=== PATIENT | female | born 1980 | race Caucasian/White ===

== ENCOUNTER 2017-05-17 03:51 | Inpatient (IN) | payer OTHER ==
[~2017-05-17] VITALS: Ht 160 cm; Wt 49.0 kg
[~2017-05-17 03:51] MED LIST: AUGMENTIN 875-1 EACH PO; FOLIC ACID 1 MG PO; FOLIC ACID1 M1 PO; MAGNESIUM400 M1 PO; NICODERM C21 MG/24 H TOP; ONE DAILY MULT1 EAC2 PO; PANTOPRAZOLE SO40 M1 PO; PERCOCET 5-3251 EACH PO; QUETIAPINE FUMA50 M1 PO; ROPINIROLE HCL0.5 MG PO; SEROQUEL XR150 M1 PO; SEROQUEL50 M1 PO; VITAMIN B-1100 MG PO; VITAMIN B1100 MG PO
--- NOTE | 2017-05-17 12:27 | Operative Report ---
Operative/Inv Procedure Report Surgery Date: 05/17/17 Name of Procedure: Laparoscopic colostomy reversal Take down of splenic flexure Pre-Operative Diagnosis: Diverticulitis status post colostomy Post-Operative Diagnosis: Same Estimated Blood Loss: less than 50ml Surgeon/External Auditor: Marlon VELASCO,Augustin Singer/Stacy SHARIF Anesthesia: general endotracheal tube Drains: None Specimens: Stoma and rectosigmoid Operative Indication: 36-year-old woman status post Gray's procedure for diverticulitis presents for colostomy reversal Operative/Procedure Note Note: After consent is brought to the operative laid supine. Gen. anesthesia was obtained and her abdomen was prepped in lithotomy position. The stoma was closed preoperatively and a sterile dressing placed over it. We gained access to the peritoneum through an epigastric port site through her midline scar. Skin was incised sharply subcutaneous tissues tissues dissected bluntly. Fascia was incised sharply and stay sutures placed. A blunt Severino port was placed. Pneumoperitoneum was achieved. A 5 mm ports placed in the right mid abdomen, a 12 mm ports placed in the right lower quadrant and a 5 mm ports placed in the suprapubic region. All were placed under direct vision the camera. Began by taking down the adhesions to the anterior abdominal wall sharply. There were minimal adhesions to the stoma site. There were numerous bowel loops that were adherent to the colon which were taken down sharply. This was the lengthiest part of the dissection. We then dissected small bowel loops up out of the pelvis. One loop was intimately adhered to the staple line of the rectal stump. Eventually were able to dissect it free circumferentially and evacuated the intestinal contents out of the pelvis. Abdominal cavity was and suction irrigated normal saline. We then converted to an open operation by taking down the stoma with an ellipse of skin around it. We dissected down to the peritoneum and mobilized the colon up into the wound. The stoma was transected with an automatic purse dai and then the portion of colon traveling through the abdominal wall was transected and passed off the field. We sized the colon to a 31 EEA anvil. The intervals placed in and cinched down. Fatty tissue overlying the staple line was taken down with cautery. And will then placed back in the peritoneal cavity in the fascia at the stoma site closed in 2 layers of 0 Maxon suture. We then proceeded back laparoscopically. It appeared that the left colon needed more mobilization. Took down the splenic flexure with blunt and cautery and LigaSure dissection. Once we had adequate mobilization I then broke scrub and went down below. Rectal stump was quite long but we're able to navigate it with proctoscopy as well as the sizers. Then placed the EEA stapler up through the anus up to the rectal stump. In doing so we saw what appeared to be a tear nearly through and through near the rectal stump. I then removed it and placed a proctoscope. Indeed there was a tear so I then scrubbed back in and went back laparoscopically. We mobilized the proximal rectum and using EEA stapler to transect the rectosigmoid junction just beyond the area of perforation. Vessels were taken with LigaSure. I then went back down below and performed end-to-end anastomosis without complication. Final anastomotic leak check was performed and no bubbles were seen. And scrubbed back in. The rectal specimen was extracted through the epigastric port site in a specimen bag. Within remove the ports. The fascia was closed 0 Vicryl suture. Skin incisions closed with leanna in the stoma site left open for packing. Patient tolerated procedure well. CC: Loyda VELASCO,Tequila Hernández
--- NOTE | 2017-05-17 15:09 | Admission Core Measures ---
Acute Coronary Syndrome (CM) ACS Core Measures Acute Coronary Syndrome Diagnosis No Congestive Heart Failure (NEW) CHF Core Measures Congestive Heart Failure Diagnosis No Cerebrovascular Accident (NEW) CVA Core Measures CVA/TIA Diagnosis No Venous Thromboembolism VTE Core Luca (View Protocol) VTE Risk Factors Surgery No Mechanical VTE Prophylaxis d/t N/A MechProphylax Ordered No VTE Pharm Prophylaxis d/t NA PharmProphylax ordered Problem List As ranked by this Provider includes Assessment & Plan 1. Status post colostomy HOME MEDS Home Med List Magnesium Oxide (Magnesium) 400 MG CAPSULE 1 CAP PO DAILY SUPP (Reported) Pantoprazole Sodium 40 MG TABLET.DR 1 TAB PO DAILY REFLUX (Reported) Quetiapine Fumarate 50 MG TABLET 1 TAB PO BID BIPOLAR (Reported) Quetiapine Fumarate (Seroquel XR) 150 MG TAB.ER.24H 1 TAB PO AT BEDTIME MOOD AND ANXIETY Ropinirole HCl 0.5 MG TABLET 1 TAB PO BID RESTLESS LEG (Reported)
--- NOTE | 2017-05-17 15:19 | PN- General Surgery ---
Subjective Subjective: Post op check: Patient reporting generalized abdominal pain. Denies nausea, denies vomitting. Is npo. Has ibarra catheter in place. No flatus. No belching or hiccuping. Has yet to ambulate. Objective Vital Signs and I&Os T: 98.4, HR 82, RR 15, BP: 104/64, O2 95 Room Air Physical Exam: General: Alert and oriented x3, no acute distress Cardiac: RRR, s1s2 Pulm: CTA bilaterally ABD: Non-distended, florencio-incisional tenderness, no peritonitic signs on exam. No bowel sounds ausculated. Dressing to stoma site blood tinged, other dressings dry and intact. Extremities: Moves all extremities, distal sensations intact. Skin warm and well perfused. DP pulses palpable. ALPS in place. Bilateral calves soft and non-tender. Assessment/Plan Assessment/Plan This is a 36 year old female with a PMH signficant for copd, depression, anxiety. She had colostomy for perforated diverticulitis. She is POD 0 for colostomy reversal -npo, iv fluid hydration -oob as tolerated -hep sub q for dvt ppx, alps -atc offirmev, with iv morphine for breakthrough pain, will transition to po as bowel function improves -Follow up labs in am, especially magnesium as she is on a home supplement Will d/w Dr. Mason Core Measures Venous Thromboembolism VTE Risk Factors Surgery No Mechanical VTE Prophylaxis d/t N/A MechProphylax Ordered No VTE Pharm Prophylaxis d/t NA PharmProphylax ordered
[2017-05-17 16:00] VITALS: BP 108/72
[2017-05-17 22:33] VITALS: BP 116/80
[2017-05-18 02:10] VITALS: BP 111/94
[2017-05-18 06:59] VITALS: BP 134/76
--- NOTE | 2017-05-18 07:43 | PN- General Surgery ---
See Addendum Subjective Subjective: Pt re[ports passing small amounts of flatus. She has not been OOB yet since surgery. On IV Ofirmev fpr pain, took Morphine IV for pain. Denies nausea. Objective Vital Signs and I&Os Vital Signs Date Time Temp Pulse Resp B/P B/P Pulse O2 O2 Flow FiO2 Mean Ox Delivery Rate 05/18 0659 98.2 73 16 134/76 100 Nasal 1.0L Cannula 05/18 0210 98.3 82 18 111/94 98 Nasal 2.0L Cannula 05/18 0000 Nasal 2.0L Cannula 05/17 2233 98.2 96 16 116/80 94 Nasal 3.0L Cannula 05/17 1618 95 Nasal 3.0L Cannula 05/17 1600 97.7 110 16 108/72 95 Nasal 3.0L Cannula Intake & Output 05/18 0800 02/ 0000 05/17 1600 05/17 0800 05/17 0000 05/16 1600 Intake Total 840 705 Output Total 1000 Balance 840 -295 Intake, IV 600 225 Intake, Oral 240 480 Output, Urine 1000 Patient 108 lb Weight Alert, oriented, looks comfortable.No distress. Lungs clear bilat. Herat with normal rate. Abdomen is soft, mildly ditended. Incisional sites are clean with dressings on, no active bleeding. Appropriately tender. Extr. without edema. Assessment/Plan Assessment/Plan s/p colostomy reversal for diverticulitis POD#1 Abdominal exam as expected, mildly distended and appropriately tender. She has evidence of some bowel fxn / passing small flatus. I instructed her that she needs to be ambulating multiple times to promote bowel fxn. Would continue clear liquids for now tilll passing more flatus. On IV Tylenol for pain. Will add oral Percocet. Instructed to take IV morphine as second choice if no relief with oral narcotic. Making adequate urine.Taking PO liquids well. Will d/c [place] and hep lock IVF. On heparin sc for chemical DVT prophylaxis. Labs pending for this morning, will follow results. Core Measures Venous Thromboembolism VTE Risk Factors Surgery No Mechanical VTE Prophylaxis d/t N/A MechProphylax Ordered No VTE Pharm Prophylaxis d/t NA PharmProphylax ordered
[2017-05-18 08:22] LABS: ABSOLUTE BASOPHIL COUNT 0.1 /CUMM (0.0-0.2); ABSOLUTE EOSINOPHIL COUNT 0 /CUMM (0.0-0.7); ABSOLUTE GRANULOCYTE CT 11.1 /CUMM (1.4-6.5); ABSOLUTE LYMPH COUNT 3.2 /CUMM (1.2-3.4); ABSOLUTE MONOCYTE COUNT 0.9 /CUMM (0.10-0.60); BASOPHIL % 0.3 % (0.0-2.0); EOSINOPHIL % 0 % (0-5); MEAN CORPUSCULAR HGB 30.1 PG (27.0-31.0); MEAN CORPUSCULAR HGB CONC 33.8 G/DL (33.0-37.0); MEAN CORPUSCULAR VOLUME 89.1 FL (81.0-99.0); MEAN PLATELET VOLUME 7.9 FL (7.4-10.4); PLATELET COUNT 312 /CUMM (130-400); RBC DISTRIBUTION WIDTH 14.1 % (11.5-14.5); RED BLOOD CELL CT 4.06 /CUMM (4.20-5.40)
[2017-05-18 10:04] LABS: HEMATOCRIT 36.2 % (37-47); WHITE BLOOD CELL COUNT 15.1 /CUMM (4.8-10.8)
[2017-05-18 14:35] VITALS: BP 100/68
[2017-05-18 22:05] VITALS: BP 130/88
[2017-05-19 06:30] VITALS: BP 120/94
--- NOTE | 2017-05-19 09:29 | PN- General Surgery ---
See Addendum Surgical Brief Attending Note Brief Attending Note: patient doing well. tolerating clears. flatus. no bm. ambulatory. advance diet. anticipate d/c tomorrow. Needs packing change stoma site daily.
[2017-05-19 14:29] VITALS: BP 104/64
[2017-05-19 21:44] VITALS: BP 114/80
[2017-05-20 06:13] VITALS: BP 100/76
--- NOTE | 2017-05-20 09:06 | Patient Discharge Instructions ---
Discharge Instructions General Discharge Information You were seen/treated for: LEFT COLON COLOSTOMY You had these procedures: COLOSTOMY REVERSAL Watch for these problems: INCREASED WOUND DRAIANGE/REDNESS, TEMP>101.5, INCREASED PAIN Call Surgeon to remove: [place] No bath, but you may shower: Yes Other wound care: DAILY PACKING TO OLD STOMA SITE BY [facility] Diet Continue normal diet: Yes Recommended Diet: Regular Activity Activity Limited to: Weight bear as tolerated Other activity limits: NO STRENUOUS ACTIVITY Acute Coronary Syndrome Inclusion Criteria At DC or during hospital stay patient has or had the following: ACS DIAGNOSIS No Discharge Core Measures Meds if any: Prescribed or Continued at Discharge Meds if any: NOT Prescribed or Continued at Discharge Congestive Heart Failure Inclusion Criteria At DC or during hospital stay patient has or had the following: CHF DIAGNOSIS No Discharge Core Measures Meds if any: Prescribed or Continued at Discharge Meds if any: NOT Prescribed or Continued at Discharge Cerebrovascular accident Inclusion Criteria At DC or during hospital stay patient has or had the following: CVA/TIA Diagnosis No Discharge Core Measures Meds if any: Prescribed or Continued at Discharge Meds if any: NOT Prescribed or Continued at Discharge Venous thromboembolism Inclusion Criteria VTE Diagnosis No VTE Type NONE VTE Confirmed by (Test) NONE Discharge Core Measures - Per Current guidelines, there needs to be overlap - treatment for the first 5 days of Warfarin therapy. - If discharged on Warfarin prior to 5 days of - overlap therapy, the patient will need to be - assessed for post discharge needs including - *Post discharge parental anticoagulation - *Warfarin and/or parental anticoagulation education - *Follow up date to check INR post discharge At least 5 days overlap therapy as Inpatient No Meds if any: Prescribed or Continued at Discharge Note: Overlap Therapy is Warfarin and Anticoagulant Meds if any: NOT Prescribed or Continued at Discharge
--- NOTE | 2017-05-20 09:13 | PN- General Surgery ---
Subjective Subjective: POD#3 S/P COLOSTOMY REVERSAL NO MAJOR ISSUES OVERNIGHT TOLERATING REG DIET DENIES, CP, SOB, NO N/V, NO BLOATING/BELCHING NO BM VOIDING AND AMBULATING INDEPENDENTLY Objective Vital Signs and I&Os Vital Signs Date Time Temp Pulse Resp B/P B/P Pulse O2 O2 Flow FiO2 Mean Ox Delivery Rate 05/20 612 98.2 78 20 100/76 92 05/19 214 98.1 78 18 114/80 96 05/19 1429 98.4 82 15 104/64 95 Room Air Intake & Output 05/20 1600 05/20 0800 05/20 0000 05/19 1600 05/19 0000 Intake Total 120 450 500 240 480 Output Total 400 300 250 Balance -280 150 500 240 230 Intake, Oral 120 450 500 240 480 Output, Urine 400 300 250 Physical Exam: CV: RRR LUNGS: CLEAR ABD: SOFT, FLAT, +BS WOUND C/D/I STOMA SITE CLEAN WITHOUT DRAIANGE NO CELLULITIS PRESENT EXT: NO CALF TENDERNESS BIALT DISTAL CMS INTACT Assessment/Plan Assessment/Plan SURGICAL STABLE PLAN CONT OOB/AMBULATE AWAIT IMPROVED BOWEL FXN POSSIBLE D/C LATER TODAY Core Measures Venous Thromboembolism VTE Risk Factors Surgery No Mechanical VTE Prophylaxis d/t N/A MechProphylax Ordered No VTE Pharm Prophylaxis d/t NA PharmProphylax ordered
[2017-05-20] MEDS ORDERED: PERCOCET 5-3251 EACH PO (11:27)
== END 2017-05-20 13:20 | disposition home health service (06) | DRG 223 ==
LOC: SDA 03:51 → 2NB 03:51 → ENRESERV 12:47 → ENTRNSPT 14:16 → EDTRNSPTSTS 14:18 → 2NB 14:27 → CMPTRNSPT 14:37 → ENPENDDIS 05-20 11:30 → ENTRNSPT 05-20 13:04 → EDTRNSPT 05-20 13:16 → EDTRNSPTSTS 05-20 13:16 → 2NB 05-20 13:20 → CMPTRNSPT 05-20 13:31
PROVIDERS: Physician Assistant Surgical
PROC: 0DSN0ZZ Reposition Sigmoid Colon, Open Approach (ICD-10-PCS; principal; 2017-05-18)
PROC: 0DSN4ZZ Reposition Sigmoid Colon, Percutaneous Endoscopic Approach (ICD-10-PCS; 2017-05-18)
DX: Z43.3 Encounter for attention to colostomy (principal); Z53.31 Laparoscopic surgical procedure converted to open procedure; K57.20 Diverticulitis of large intestine with perforation and abscess without bleeding; F17.210 Nicotine dependence, cigarettes, uncomplicated; E83.42 Hypomagnesemia; J44.9 Chronic obstructive pulmonary disease, unspecified
CPT/HCPCS: 2NBSP; 36415; 82436; 87086; C9399; J0131; J0690; J1100; J1630; J1644; J2270; J2405; J7042